=== PATIENT | male | born 1940 | race Caucasian/White ===

== ENCOUNTER 2017-04-22 11:59 | Emergency (ER) | payer OTHER, MEDICARE ==
[~2017-04-22] VITALS: Ht 182.9 cm; Wt 110.2 kg
[~2017-04-22 11:59] MED LIST: PERCOCET 325 MG1 TA2 PO; ZOFRAN4 MG PO
[2017-04-22 12:59] LABS: ABSOLUTE BASOPHIL COUNT 0 /CUMM (0.0-0.2); ABSOLUTE EOSINOPHIL COUNT 0.1 /CUMM (0.0-0.7); ABSOLUTE GRANULOCYTE CT 3.4 /CUMM (1.4-6.5); ABSOLUTE LYMPH COUNT 1.8 /CUMM (1.2-3.4); ABSOLUTE MONOCYTE COUNT 0.3 /CUMM (0.10-0.60); BASOPHIL % 0.5 % (0.0-2.0); EOSINOPHIL % 1.1 % (0-5); GRANULOCYTE % 60.2 % (42.2-75.2); HEMATOCRIT 45.7 % (42-52); MEAN CORPUSCULAR HGB 29.8 PG (27.0-31.0); MEAN CORPUSCULAR HGB CONC 32.8 G/DL (33.0-37.0); MEAN CORPUSCULAR VOLUME 90.8 FL (80.0-94.0); PLATELET COUNT 154 /CUMM (130-400); RBC DISTRIBUTION WIDTH 14.9 % (11.5-14.5); RED BLOOD CELL CT 5.03 /CUMM (4.70-6.10); WHITE BLOOD CELL COUNT 5.7 /CUMM (4.8-10.8)
[2017-04-22] MEDS ORDERED: ALLOPURINOL100 M1 PO (13:15)
[2017-04-22] MEDS ORDERED: HYDRALAZINE HCL25 M1 PO (13:15)
[2017-04-22] MEDS ORDERED: LOSARTAN POTAS100 M1 PO (13:15)
[2017-04-22] MEDS ORDERED: PANTOPRAZOLE SO40 M1 PO (13:16)
[2017-04-22] MEDS ORDERED: FUROSEMIDE20 M1 PO (13:16)
[2017-04-22] MEDS ORDERED: METFORMIN HCL500 M3 PO (13:16)
[2017-04-22] MEDS ORDERED: WARFARIN SODIUM5 M1 PO (13:17)
[2017-04-22] MEDS ORDERED: VESICARE10 MG PO (13:17)
[2017-04-22] MEDS ORDERED: MELATONIN3 M4 PO (13:18)
[2017-04-22] MEDS ORDERED: TRAVATAN Z5 ML OS (13:18)
[2017-04-22] MEDS ORDERED: VITAMIN B-121000 MC3 PO (13:19)
[2017-04-22] MEDS ORDERED: VITAMIN D31000 UNI1 PO (13:19)
--- NOTE | 2017-04-22 15:01 | ED GENERAL ADULT ---
History of Present Illness General Chief Complaint: Altered Mental Status Stated Complaint: AMS.HAULCINATING Source: patient, family Exam Limitations: no limitations Vital Signs & Intake/Output Vital Signs & Intake/Output Vital Signs Date Time Temp Pulse Resp B/P B/P Pulse O2 O2 Flow FiO2 Mean Ox Delivery Rate 04/22 2008 98.0 75 20 150/92 97 Room Air 04/22 1723 98.5 66 20 152/88 94 Room Air 04/22 1414 98.6 81 20 170/88 97 04/22 1319 Room Air 04/22 1212 98.9 84 15 164/79 100 Room Air ED Intake and Output 04/23 0000 04/22 1200 Intake Total Output Total Balance Patient 243 lb Weight Weight Reported by Patient Measurement Method Allergies Coded Allergies: NO KNOWN ALLERGIES (04/22/17) Reconcile Medications Allopurinol 100 MG TABLET 200 MG PO DAILY GOUT (Reported) Cholecalciferol (Vitamin D3) (Vitamin D3) 1,000 UNIT CAPSULE 1 CAP PO DAILY SUPPLEMENT (Reported) Cyanocobalamin (Vitamin B-12) 1,000 MCG TABLET 1 TAB PO DAILY SUPPLEMENT ( Reported) Furosemide 20 MG TABLET 1 TAB PO DAILY HTN (Reported) Hydralazine HCl 25 MG TABLET 1 TAB PO TID HTN (Reported) Losartan Potassium 100 MG TABLET 1 TAB PO DAILY HTN (Reported) Melatonin 3 MG TABLET 10 MG PO QHS PRN SLEEP (Reported) Metformin HCl 500 MG TABLET 1 TAB PO DAILY DIABETES (Reported) Pantoprazole Sodium 40 MG TABLET.DR 1 TAB PO DAILY GERD (Reported) Solifenacin Succinate (Vesicare) 10 MG TABLET 1 TAB PO DAILY FREQUENT URINATION (Reported) Travoprost (Travatan Z) 0.004 % DROPS 1 GTT OS QPM LEFT EYE (Reported) Warfarin Sodium 5 MG TABLET 1 TAB PO AD BLOOD THINNER (Reported) Warfarin Sodium 4 MG TABLET 1 TAB PO AD BLOOD THINNER (Reported) Triage Note: PT TO ED FOR HALLUCINATIONS OVER PAST THREE DAYS, REPORTING PT HAS BEEN SEEING PEOPLE WHO ARENT THERE AND "HES COMPLETELY DISORIENTED". PT ALERT AND ORIENTED X 3 IN TRIAGE, SLOW TO ANSWER BUT ANSWERING APPROPRIATELY. URINE TRIO OBTAINED IN TRIAGE. PT HAS NO COMPLAINTS. Triage Nurses Notes Reviewed? yes HPI: 76M PMH HTN, HLD, ATRIAL FIBRILLATION ON COUMADIN BROUGHT IN BY FOR 2-3 EPISODES OF VISUAL HALLUCINATIONS. AT BASELINE PATIENT IS FORGETFUL BUT IS INFREQUENTLY CONFUSED. OVER THE PAST WEEK HAD 2-3 EPISODES WHERE HE REPORTED SEEING SOMEONE WHO WAS NOT THERE. HE IS OTHERWISE NOT CONFUSED, ALERT AND ORIENTED X3. HIS REPORTS THAT OTHER THAN THE EPISODES HE IS AT HIS BASELINE. DENIES FEVER, CHILLS, HEADACHE, VISION CHANGES, CHEST PAIN, SOB, ABDOMINAL PAIN, DIARRHEA, DYSURIA. HE IS CONTIPATED, BUT THIS IS CHRONIC, THOUGH NO BM FOR 3 DAYS. (DIDI VANEGAS MD) Past History Travel History Traveled to [place] past 21 day No Medical History Any Pertinent Medical History? 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 No (DIDI VANEGAS MD) Review of Systems Review of Systems Constitutional: Reports: no symptoms. EENTM: Reports: no symptoms. Respiratory: Reports: no symptoms. Cardiovascular: Reports: no symptoms. GI: Reports: no symptoms. Genitourinary: Reports: no symptoms. Musculoskeletal: Reports: no symptoms. Skin: Reports: no symptoms. Neurological/Psychological: Reports: see HPI. Hematologic/Endocrine: Reports: no symptoms. Immunologic/Allergic: Reports: no symptoms. All Other Systems: Reviewed and Negative (DIDI VANEGAS MD) Physical Exam Physical Exam General Appearance: well developed/nourished, no apparent distress, alert, awake , comfortable Head: atraumatic, normal appearance Ears, Nose, Throat: normal ENT inspection Neck: normal inspection, supple, full range of motion Respiratory: normal breath sounds, no respiratory distress Cardiovascular: regular rate/rhythm Gastrointestinal: soft, non-tender Back: normal range of motion Extremities: normal inspection, normal range of motion, no edema Neurologic/Psych: no motor/sensory deficits, awake, alert, oriented x 3, normal mood/affect, prorate clerk II-XII nml as tested, SHUFFLING GAIT BUT STEADY Core Measures ACS in differential dx? No CVA/TIA Diagnosis: No Severe Sepsis Present: No Septic Shock Present: No (GUILHERME BERGMAN,DIDI) Progress Differential Diagnoses I considered the following diagnoses in my evaluation of the patient: DEMENTIA, DELIRIUM, CVA, PSYCHOSIS, ENCEPHALOPATHY, TIA Plan of Care: Orders Procedure Date/time Status Regular Diet 04/23 B Active Add-on Test (ER Only) 04/22 1619 Active URINE DRUG SCREEN FOR ER ONLY 04/22 1618 Complete Add-on Test (ER Only) 04/22 1521 Active ED CRISIS PSYCH CONSULT 04/22 1423 Active ETHANOL 04/22 1245 Complete COMPREHENSIVE METABOLIC PANEL 04/22 1237 Complete CBC WITHOUT DIFFERENTIAL 04/22 1237 Complete EKG 04/22 1231 Active URINALYSIS 04/22 1202 Complete Laboratory Tests 04/22/17 1501: Serum Alcohol Cancelled 04/22/17 1245: Anion Gap 12, Estimated GFR > 60, BUN/Creatinine Ratio 25.6 H, Glucose 100 H, Calcium 9.0, Total Bilirubin 1.1, AST 17, ALT 34, Alkaline Phosphatase 62, Total Protein 7.5, Albumin 4.7, Globulin 2.8, Albumin/Globulin Ratio 1.7, CBC w Diff NO MAN DIFF REQ, RBC 5.03, MCV 90.8, MCH 29.8, RDW 14.9 H, MPV 10.0, Gran % 60.2, Lymphocytes % 32.2, Monocytes % 6.0, Eosinophils % 1.1, Basophils % 0.5, Absolute Granulocytes 3.4, Absolute Lymphocytes 1.8, Absolute Monocytes 0.3, Absolute Eosinophils 0.1, Absolute Basophils 0, PUBS MCHC 32.8 L, Serum Alcohol < 10.0 04/22/17 1207: Urine Opiates Screen < 100.00, Methadone Screen < 40, Barbiturate Screen < 60, Ur Phencyclidine Scrn < 6.00, Amphetamines Screen < 100, U Benzodiazepines Scrn < 85, Urine Cocaine Screen < 50, Urine Cannabis Screen < 5.00, Urine Color YEL, Urine Clarity CLEAR, Urine pH 6.0, Ur Specific [place] 1.010, Urine Protein TRACE H, Urine Ketones NEG, Urine Nitrite NEG, Urine Bilirubin NEG, Urine Urobilinogen 0.2, Ur Leukocyte Esterase NEG, Ur Microscopic SEDIMENT EXAMINED, Urine RBC RARE, Urine Bacteria RARE H, Urine Hemoglobin NEG, Urine Glucose NEG WILL OBTAIN URINARLYSIS, URINE TOXICOLOGY, CBC, CMP, CRISIS EVALUATION. SUSPECT DEMENTIA WITH POSSIBLE DELIRIUM/SUNDOWNING. VESICARE STARTED RECENTLY, MAY BE ADVERSE EFFECT. URINALYSIS NORMAL, CMP AND CBC NORMAL. SENT TO [facility] FOR CT HEAD WITHOUT CONTRAST WHICH SHOWED ONLY CHRONIC CHANGES. SPOKE WITH ER CRISIS AND GERIPSYCHIATRIST DR SMITH WHO INITIALLY RECOMMENDED CT HEAD, AND NOW RECOMMENDS FOLLOW UP WITH NEUROLOGY AN OUTPATIENT FOR EVALUATION OF POSSIBLE LEWY BODY DEMENTIA. PATIENT WILL BE DISCHARGED HOME IN THE CARE OF HIS WITH OUTPATIENT PCP AND NEUROLOGY FOLLOW UP, WITH EVENTUAL REFERRAL TO GERIATRIC PSYCHIATRY. NO NEW MEDICATIONS ARE INDICATED AT THIS TIME. (DIDI VANEGAS MD) Diagnostic Imaging: Viewed by Me: CT Scan. Discussed w/RAD: CT Scan. Radiology Impression: PER [facility] RADIOLOGY REPORT: CT HEAD WITHOUT CONTRAST NO ACUTE INTRACRANIAL ABNORMALITY WITH BILATERAL AGE-RELATED VOLUME LOSS. Initial ED EKG: AFIB, no ST T wave changes Prior EKG: unchanged (DIDI VANEGAS MD) Departure Departure Time of Disposition: 2018 Disposition: HOME OR SELF CARE Condition: Stable Clinical Impression Primary Impression: Visual hallucination Secondary Impressions: Dementia Referrals: VICTOR HUGO BERGMAN,MERCEDES Marroquin (PCP/Family) LUIS BERGMAN,ZHANNA YANES MD,CHARU Christianson. Additional Instructions: FOLLOW UP WITH PCP AND NEUROLOGY OUTPATIENT. Departure Forms: Customer Survey General Discharge Information (DIDI VANEGAS MD) Resident Co-Sign Statement Statement: ED Attending supervision documentation- [X] I saw and evaluated the patient. I have also reviewed all the pertinent lab results and diagnostic results. I agree with the findings and the plan of care as documented in the Resident's documentation. [X] I have reviewed the ED Record and agree with the Resident's documentation. [] Additions or exceptions (if any) to the Resident's note and plan are summarized below: [] (ANDERSON BERGMAN,PORTIA) Critical Care Note Critical Care Note Critical Care Time: non-applicable (DIDI VANEGAS MD)
--- NOTE | 2017-04-22 17:46 | ED PSYCH CRISIS CONSULTATION ---
Crisis Consult Basic Assessment Date of Consult: 04/22/17 Responsible Person/Accompanied By: Self/Rosy Morton () Insurance Authorization: Insurance #1: Insurance name: [employer] [place]. Phone number: Policy number: [id number] Group number: [id number] Authorization number: ED Provider: Patient's ED Provider: DIDI VANEGAS MD Primary Care Physician: Patient's PCP: MERCEDES GAY MD PCP's Current Psychiatrist: Gerard Esteban MD Chief Complaint: Altered Mental Status Patient's Quote: "I'm ok" Present Illness: Pt is a 76 year old male. Pt was referred to the ED by his Rosy Morton. reports the pt presented symptoms of confusion, disorganized thoughts, "seeing people who are not there". Prior to today, one week ago, he locked himself out of the house and told his "the house is full of people and they won't let me in" as he is ringing the door lo. During the interview the pt was alert, engaging and cooperative. Pt did not know the date, he Just said "17". However, he did know the current president Ayesha, the last two presidents [place] [employer] & [place] and then all the past presidents back to [place], George, [facility] and Sam. His mood was jovial, good attitude with a sense of humor and very calm. Pt keep getting up to stretch his legs, due to aching knees. Pt was fed a meal and he appropriately used the utensils knife and fork and cut and ate his chicken dinner. reports pt has a good appetite , but has difficulty sleeping because of a sleep disorder. Pt denies hearing voices now, pt denies SI/HI. Pt reports feeling a little depressed about being retired and not being able to work. His , states that she continuously ask him not to paint or do jobs around the house anymore. However, she reports he cooks for himself. He takes his own afternoon medications. Pt's labels his medications and leavess the meds for him when she goes to work. Mrs. Morton reports her was seen by his PCP Dr. Mercedes Gay on 04/01/17 and had a blood work done and he was "fine". Pt has AFib, Diabetes, Hypertension , Over Active Bladder and Sleep Apnea and takes the following medications. Metformin 500mgs, Losartan 100mgs, Hydralazine 25 mgs, Furosemide 20mgs, Pantoprozide 50mgs, Allopurinol 200mgs, Warfarin Sodium, melatonin 10 mgs, Lip- Flavoinid plus, Align-Probiotic 6mgs. Pt's Utox was negative. Pt denies a history of substances use. Mrs. Morton states the pt does not have a history of mental illness. No prior inpatient hospitalization for psychiatric reasons. The only known family history is an older sister age 86 who has Alzheimer's Disease. Patient's Address: [address] [place] [address] Other Who Do You Live With? Other (see notes) (Spouse) Family/Informants Interviewed: Face to face interview with Rosy Morton . Mrs. Morton reports seeing a change in behavior that started a week ago. She also said the pt had a change in his medications (1 medication Vesicare) after he saw his PCP on 04/01/17. She reports he is generally forgetful about somethings. However, he is able to prepare meals for himself and take his noon medications when she goes off to work daily. Pt did say to her a couple of days a go "who is that man over there". Mrs. Morton is concern that the pt seems more confused and disoriented in the last two days. Allergies - Coded Allergies: NO KNOWN ALLERGIES (04/22/17) Current Medications - Scheduled Medications Allopurinol 100 MG TABLET 200 MG PO DAILY GOUT #60 (Reported) Entered as Reported by PIEDAD CROWDER on 04/22/17 1315 Cholecalciferol (Vitamin D3) (Vitamin D3) 1,000 UNIT CAPSULE 1 CAP PO DAILY SUPPLEMENT (Reported) Entered as Reported by PIEDAD CROWDER on 04/22/17 1319 Cyanocobalamin (Vitamin B-12) 1,000 MCG TABLET 1 TAB PO DAILY SUPPLEMENT ( Reported) Entered as Reported by PIEDAD CROWDER on 04/22/17 1319 Furosemide 20 MG TABLET 1 TAB PO DAILY HTN #30 (Reported) Entered as Reported by PIEDAD CROWDER on 04/22/17 1316 Hydralazine HCl 25 MG TABLET 1 TAB PO TID HTN #270 (Reported) Entered as Reported by PIEDAD CROWDER on 04/22/17 131 Losartan Potassium 100 MG TABLET 1 TAB PO DAILY HTN #30 (Reported) Entered as Reported by PIEDAD CROWDER on 04/22/17 1315 Metformin HCl 500 MG TABLET 1 TAB PO DAILY DIABETES #30 (Reported) Entered as Reported by PIEDAD CROWDER on 04/22/17 1316 Pantoprazole Sodium 40 MG TABLET.DR 1 TAB PO DAILY GERD #30 (Reported) Entered as Reported by PIEDAD CROWDER on 04/22/17 1316 Solifenacin Succinate (Vesicare) 10 MG TABLET 1 TAB PO DAILY FREQUENT URINATION #30 (Reported) Entered as Reported by PIEDAD CROWDER on 04/22/17 131 Travoprost (Travatan Z) 0.004 % DROPS 1 GTT OS QPM LEFT EYE #5 (Reported) Entered as Reported by PIEDAD CROWDER on 04/22/17 1318 Warfarin Sodium 5 MG TABLET 1 TAB PO AD BLOOD THINNER #30 (Reported) Entered as Reported by PIEDAD CROWDER on 04/22/17 131 Warfarin Sodium 4 MG TABLET 1 TAB PO AD BLOOD THINNER (Reported) Entered as Reported by NAT MIXON on 04/22/17 1940 Scheduled PRN Medications Melatonin 3 MG TABLET 10 MG PO QHS PRN SLEEP (Reported) Entered as Reported by PIEDAD CROWDER on 04/22/17 1318 Laboratory Results: Laboratory Tests 04/22/17 1501: Serum Alcohol Cancelled 04/22/17 1245: Anion Gap 12, Estimated GFR > 60, BUN/Creatinine Ratio 25.6 H, Glucose 100 H, Calcium 9.0, Total Bilirubin 1.1, AST 17, ALT 34, Alkaline Phosphatase 62, Total Protein 7.5, Albumin 4.7, Globulin 2.8, Albumin/Globulin Ratio 1.7, CBC w Diff NO MAN DIFF REQ, RBC 5.03, MCV 90.8, MCH 29.8, RDW 14.9 H, MPV 10.0, Gran % 60.2, Lymphocytes % 32.2, Monocytes % 6.0, Eosinophils % 1.1, Basophils % 0.5, Absolute Granulocytes 3.4, Absolute Lymphocytes 1.8, Absolute Monocytes 0.3, Absolute Eosinophils 0.1, Absolute Basophils 0, PUBS MCHC 32.8 L, Serum Alcohol < 10.0 04/22/17 1207: Urine Opiates Screen < 100.00, Methadone Screen < 40, Barbiturate Screen < 60, Ur Phencyclidine Scrn < 6.00, Amphetamines Screen < 100, U Benzodiazepines Scrn < 85, Urine Cocaine Screen < 50, Urine Cannabis Screen < 5.00, Urine Color YEL, Urine Clarity CLEAR, Urine pH 6.0, Ur Specific [place] 1.010, Urine Protein TRACE H, Urine Ketones NEG, Urine Nitrite NEG, Urine Bilirubin NEG, Urine Urobilinogen 0.2, Ur Leukocyte Esterase NEG, Ur Microscopic SEDIMENT EXAMINED, Urine RBC RARE, Urine Bacteria RARE H, Urine Hemoglobin NEG, Urine Glucose NEG (ISRAEL BREWER LCSW) Past History Past Medical History Neurological: NONE EENT: NONE Cardiovascular: AFIB, hypertension, hyperlipidemia Respiratory: SLEEP APNEA Gastrointestinal: constipation Hepatic: NONE Renal: NONE Musculoskeletal: NONE Psychiatric: NONE Endocrine: diabetes Blood Disorders: NONE 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 Physical Limitations (Interventions): Knee problems, limits mobility Psychiatric Treatment History Psych Treatment Psychiatric Treatment No Inpatient Treatment No Outpatient Treatment No Location of Treatment n/a Reason for Treatment n/a Dates of Treatment n/a Response to Treatment n/a Diagnosis by History: Afib, hypertension, sleep apnea, over active bladder, Diabetes. Substance Use/Abuse History Drug Use/Abuse Substances Used/Abused No First Use n/a Last Used n/a How much used/taken n/a How often n/a For how long n/a Route of use n/a Substance Abuse Treatment Substance Abuse Treatment Past Substance Abuse [place] No Inpatient Treatment No Outpatient Treatment No Location of Treatment n/a Reason for Treatment n/a Dates of Treatment n/a Response to Treatment n/a (ISRAEL BREWER LCSW) Current Mental Status Mental Status Orientation: Current situation Affect: WNL Speech: WNL Neuro-vegetative: Energy Decreased, Sleep Disturbance Appearance Appearance- Dress/Hygiene: Clean, age appropriate attire. Behaviors Thought Process: Disorganized Thought Content: Somatic Memory: Impaired Insight: Poor SI/HI Risk Assessment Past Suicidal Ideation/Attempts No Current Suicidal Ideation/Att No Past Homicidal Ideation/Att: No Current Homicidal Ideation/Attempts No Degree of Intent: None Danger To: N/A Gravely Disabled: Inability Risk Factors: age (under 24/over 65), chronic/serious med cond., male (Pt left alone long period kate), limited support Lethality Ratin PTSD Checklist PTSD Done? 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 Medical Condition , Afib, Diabetes, Over Active Bladder, Hypertension, Sleep Apnea, Arthritis Current GAF: 30 (ISRAEL BREWER LCSW) Departure Disposition Psych Medical Clearance Date: 04/22/17 Medically Cleared at: 0400 Time Started: 0450 Time Ended: 0510 Psychiatrist Consulted: Gerard Esteban MD Date Disposition Established: 04/22/17 Time Disposition Established: 537 Plan for Disposition - Modality: Outpatient Facility: Patient to Arrange Follow-up Appt Date: 04/24/17 Follow-Up Appt Time: 1000 Contact: PCP Dr. Gay Telephone: [phone] Rationale for Disposition: Pt presents to the ED with symptoms that are conistent with a neurological process that lead to cognitive disturbances, behavioral dysregulation, visual hallucination and sleep disturbances. Symptoms are consistent with the diagnosis of Mild Neurocognitive Disorder with Lewy Bodies. Additional Instructions: Pt's Mrs. Rosy Morton will contact pt's PCP Dr. Gay on 04/24/17 for a referral to a Neurologist. Pt's was instructed to not leave the pt alone for safety reasons. Mrs. Morton's plan is to bring pt to his daughter daily, she lives in [place]. Mrs. Morton was encourage to make a referral to an Adult Day Care as well a a VNA for medication administration. Referrals VICTOR HUGO BERGMAN,MERCEDES Marroquin (PCP/Family) (ISRAEL BREWER LCSW) Addendum Note Addendum Discussed case with ER MD as pt did not have head imaging. Requested head imaging as effective new onset psychosis in older adult with afib, high risk for stroke or vascular insult. Pt sent to [facility] for head CT. Per telephone report via ER MD, diffuse atrophy. No acute IC process. 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 Pt and did not feel danger to self or others or gravely disabled. Did not want admitted. MH provider recommneded VNA for meds, ADC as works, and closer f/u with PCP with needed f/f/u with Neurologist or Geriatric Psychiatrist to complete w/u - NELIA scan, more detailed neuro exam, neuropsych testing. amenable to arranging this as outpt. She acknowledged understanding that could bring back to ER or call 911 if worsening psychosis or if danger to self or others. (LUIS BERGMAN,GERARD Sim)
[2017-04-22] MEDS ORDERED: WARFARIN SODIUM4 M1 PO (19:40)
[2017-04-22 20:08] VITALS: BP 150/92
== END 2017-04-22 20:28 ==
LOC: ERH 11:59
PROVIDERS: Internal Medicine
DX: R44.1 Visual hallucinations (principal); F03.90 Unspecified dementia, unspecified severity, without behavioral disturbance, psychotic disturbance, mood disturbance, and anxiety; Z79.01 Long term (current) use of anticoagulants
CPT/HCPCS: 80307; 81001; 93005; 93010; G0463; G0480

== ENCOUNTER 2018-07-24 23:19 | Emergency (ER) | payer OTHER, MEDICARE ==
[~2018-07-24 23:19] MED LIST changes: +ALLOPURINOL100 M1 PO; +FUROSEMIDE20 M1 PO; +HYDRALAZINE HCL25 M1 PO; +LOSARTAN POTAS100 M1 PO; +MELATONIN10 M2 PO; +METFORMIN HCL500 M3 PO; +PANTOPRAZOLE SO40 M1 PO; +TRAVATAN Z5 ML OS; +VESICARE10 MG PO; +VITAMIN B-121000 MC3 PO; +VITAMIN D31000 UNI1 PO; +WARFARIN SODIUM4 M1 PO; +WARFARIN SODIUM5 M1 PO
--- NOTE | 2018-07-24 23:22 | ED AMS/SEIZURE/WEAK/DIZZY ---
History of Present Illness General Chief Complaint: General Adult Stated Complaint: BIBA CONFUSION Source: patient, EMS Exam Limitations: clinical condition Vital Signs & Intake/Output Vital Signs & Intake/Output Vital Signs Date Time Temp Pulse Resp B/P B/P Pulse O2 O2 Flow FiO2 Mean Ox Delivery Rate 07/25 1449 97.7 76 22 125/72 98 Room Air 07/25 1226 70 141/104 / 1224 97.6 70 18 141/104 97 / 1023 98.3 72 18 168/85 97 07/25 1020 98.3 72 18 168/85 07/25 0644 97 Room Air 07/25 0643 98.0 67 18 170/90 98 Room Air 07/24 2330 97.8 78 18 149/75 98 Room Air Allergies Coded Allergies: NO KNOWN ALLERGIES (04/22/17) Triage Nurses Notes Reviewed? yes Onset: Gradual Duration: day(s):, getting worse Timing: recent history Injury Environment: home Severity: moderate Modifying Factors: Improves With: rest. Associated Symptoms: confusion HPI: 77 yo gentleman h/o diabetes and afib, presents with increased confusion x 1 day. Per the medics, he did not recognize his . He wandered outside of his home. He recently took a sleeping medicine. Of note, he "feels warm," and has burning with urination. He presents mumbling incoherently. (Shiva BERGMAN,Stevo Mcneil) Reconcile Medications Allopurinol 100 MG TABLET 1 TAB PO DAILY GOUT (Reported) Amlodipine Besylate 5 MG TABLET 1 TAB PO DAILY HEART (Reported) Carboxymethylcellulos/Glycerin (Refresh Optive Eye Drops) 0.5 %-0.9 % DROPS 1 GTT OPH BID EYE (Reported) Cholecalciferol (Vitamin D3) (Vitamin D3) 1,000 UNIT CAPSULE 1 CAP PO DAILY SUPPLEMENT (Reported) Cyanocobalamin (Vitamin B-12) 1,000 MCG TABLET 1 TAB PO DAILY SUPPLEMENT ( Reported) Furosemide 20 MG TABLET 1 TAB PO DAILY HTN (Reported) Losartan Potassium 100 MG TABLET 1 TAB PO DAILY HTN (Reported) Melatonin 10 MG TABLET 1 TAB PO QPM SLEEP (Reported) Metformin HCl 500 MG TABLET 1 TAB PO DAILY DIABETES (Reported) Pantoprazole Sodium 40 MG TABLET.DR 1 TAB PO DAILY GERD (Reported) Solifenacin Succinate (Vesicare) 10 MG TABLET 1 TAB PO DAILY FREQUENT URINATION (Reported) Travoprost (Travatan Z) 0.004 % DROPS 1 GTT OS QPM LEFT EYE (Reported) Warfarin Sodium 5 MG TABLET 1 TAB PO SuTuThSa BLOOD THINNER (Reported) Warfarin Sodium 4 MG TABLET 1 TAB PO MoWeFr BLOOD THINNER (Reported) (Miguel Bowens MD) Past History Travel History Traveled to [place] past 21 day No Medical History Any Pertinent Medical History? 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 No (Shiva BERGMAN,tSevo Mcneil) Review of Systems Review of Systems Constitutional: Reports: no symptoms. EENTM: Reports: no symptoms. Respiratory: Reports: no symptoms. Cardiovascular: Reports: no symptoms. GI: Reports: no symptoms. Genitourinary: Reports: no symptoms. Musculoskeletal: Reports: no symptoms. Skin: Reports: no symptoms. Neurological/Psychological: Reports: no symptoms. Hematologic/Endocrine: Reports: no symptoms. Immunologic/Allergic: Reports: no symptoms. All Other Systems: Reviewed and Negative (Shiva BERGMAN,Stevo Mcneil) Physical Exam Physical Exam General Appearance: well developed/nourished, mild distress Head: atraumatic, normal appearance Eyes: Bilateral: normal appearance, PERRL, EOMI. Ears, Nose, Throat: dry mucosa Neck: normal inspection, supple, full range of motion Respiratory: normal breath sounds, chest non-tender, no respiratory distress, quiet respiration, lungs clear Cardiovascular: regular rate/rhythm Gastrointestinal: normal bowel sounds, soft Back: normal inspection Extremities: normal range of motion Neurologic/Psych: awake Core Measures ACS in differential dx? No CVA/TIA Diagnosis No Sepsis Present: No Sepsis Focused Exam Completed? No (Shiva BERGMAN,Stevo Mcneil) Progress Differential Diagnosis: dementia, sundowning, dehydration, uti vs other. Plan of Care: Orders Procedure Date/time Status Heart Healthy Diet 07/25 B Active PROTHROMBIN TIME 07/25 458 Complete Add-on Test (ER Only) 09/05 0450 Active PT Evaluate & Treat 07/25 308 Active ED CRISIS PSYCH CONSULT 07/25 308 Active CASE MANAGEMENT CONSULT 07/25 308 Active URINALYSIS 07/24 233 Complete TROPONIN LEVEL 07/24 232 Complete LIPASE 07/24 232 Complete LACTIC ACID 07/24 2322 Complete HEPATIC FUNCTION PANEL 07/24 2322 Complete CBC WITHOUT DIFFERENTIAL 07/24 2322 Complete BASIC METABOLIC PANEL 07/24 2322 Complete AMYLASE 07/24 2322 Complete EKG 07/24 2322 Active Current Medications Sig/Mady Start time Last Medication Dose Stop Time Status Admin Hydralazine HCl 75 MG BID 07/25 1230 UNVr 07/25 (Apresoline) 1226 Amlodipine Besylate 5 MG DAILY 07/25 1050 UNVr 07/25 (Norvasc) 1226 Allopurinol 200 MG DAILY 07/25 09 UNVr 07/25 (Zyloprim) 1020 Cholecalciferol 1,000 IU DAILY 07/25 900 UNVr 07/25 (Vitamin D) 1020 Cyanocobalamin 1,000 MCG DAILY 07/25 900 UNVr 07/25 (Vitamin B12) 1020 Furosemide 20 MG DAILY 07/25 09 UNVr 07/25 (Lasix) 1020 Hydralazine HCl 25 MG TID 07/25 09 CAN (Apresoline) Losartan Potassium 100 MG DAILY 07/25 900 UNVr 07/25 (Cozaar) 1020 Metformin HCl 500 MG DAILY 07/25 09 UNVr 07/25 (Glucophage) 1020 Omeprazole 20 MG DAILY AC 07/25 07 UNVr 07/25 (Prilosec) 1020 Sodium Chloride 0 ONCE ONE 07/24 233 CAN (Normal Saline 0.9%) 07/24 233 Laboratory Tests 07/25/18 0508: PT 28.0 H, INR 2.54 H 07/25/18 0222: Lactic Acid Cancelled 07/24/18 2346: Urinalysis LIGHT H, Urine Color YEL, Urine Clarity CLEAR, Urine pH 6.0, Ur Specific [place] 1.020, Urine Protein 30 H, Urine Ketones NEG, Urine Nitrite NEG, Urine Bilirubin NEG, Urine Urobilinogen 1.0, Ur Leukocyte Esterase NEG, Ur Microscopic SEDIMENT EXAMINED, Ur Epithelial Cells RARE, Hyaline Casts RARE H, Urine Hemoglobin NEG, Urine Glucose NEG 07/24/188: Anion Gap 9, Estimated GFR > 60, BUN/Creatinine Ratio 27.8 H, Glucose 126 H, Lactic Acid 0.9, Calcium 9.1, Total Bilirubin 0.6, Direct Bilirubin 0.3, AST 20, ALT 29, Alkaline Phosphatase 59, Troponin I < 0.01, Total Protein 6.9, Albumin 3.9, Amylase 70, Lipase 399 H, CBC w Diff NO MAN DIFF REQ, RBC 4.34 L, MCV 87.7, MCH 29.8, MCHC 34.0, RDW 14.6 H, MPV 9.7, Gran % 71.4, Lymphocytes % 21.3 , Monocytes % 5.5, Eosinophils % 1.3, Basophils % 0.5, Absolute Granulocytes 4.6 , Absolute Lymphocytes 1.4, Absolute Monocytes 0.4, Absolute Eosinophils 0.1, Absolute Basophils 0 Diagnostic Imaging: Viewed by Me: CT Scan. Discussed w/RAD: CT Scan. Radiology Impression: PATIENT: SILVINOANTE PRESENT AGE: 77 PATIENT ACCOUNT NO: [id number] : 38 LOCATION: [facility] ORDERING PHYSICIAN: Stevo Shannon MD SERVICE DATE: 07/24/18 EXAM TYPE: CAT - CT HEAD WO IV CONTRAST EXAMINATION: CT HEAD WITHOUT CONTRAST CLINICAL INFORMATION: Mental status changes. COMPARISON: July 07, 2015. TECHNIQUE: Contiguous axial images of the brain were obtained without IV contrast. DLP: 697 mGy-cm. FINDINGS: There are no pathologic extra-axial fluid collections. The lateral, third, fourth ventricles are nondilated and concordant with the appearance of the sulci. There is no evidence for acute intraparenchymal hemorrhage or infarct. There is neither mass nor mass effect. There is no shift of midline structures. The paranasal sinuses and mastoid air cells are clear. There are no osseous lesions. IMPRESSION: No evidence for acute intracranial injury. DICTATED BY: Ricki Walters MD DATE/TIME DICTATED:07/25/1818 TELETYPE CLERK:ARGENIS DATE/TIME TRANSCRIBED:07/25/1818 CONFIDENTIAL, DO NOT COPY WITHOUT APPROPRIATE AUTHORIZATION. <Electronically signed in Other Vendor System> SIGNED BY: Ricki Walters MD 07/25/18 0025 CXR Impression: PATIENT: GLAVAN,ANTE PRESENT AGE: 77 PATIENT ACCOUNT NO: [id number] : 38 LOCATION: [facility] ORDERING PHYSICIAN: Stevo Shannon MD SERVICE DATE: 07/24/18 EXAM TYPE: RAD - XRY- PORTABLE CHEST XRAY EXAMINATION: CHEST 1 VIEW CLINICAL INFORMATION: Fever. COMPARISON: October 21, 2017. TECHNIQUE: An AP view of the chest is provided. FINDINGS: The cardiac silhouette is stable. There is streaky opacification throughout the right lung with volume loss. There is obscuration of the right hemidiaphragm and likely a [id number] pleural effusion. The left lung is clear. The osseous structures are unremarkable. IMPRESSION: Mixed parenchymal and pleural disease with volume loss to the right lung. Pneumonia cannot be excluded. Recommendation is for a followup chest series to be obtained following treatment and/or resolution of symptoms to assure resolution of this appearance. DICTATED BY: Ricki Walters MD DATE/TIME DICTATED:07/25/1817 TELETYPE CLERK:ARGENIS DATE/TIME TRANSCRIBED:07/25/1817 CONFIDENTIAL, DO NOT COPY WITHOUT APPROPRIATE AUTHORIZATION. <Electronically signed in Other Vendor System> SIGNED BY: Ricki Walters MD 07/25/18 0023 Initial ED EKG: afib, no change from prior (Shiva BERGMAN,Stevo Mcneil) Departure Departure Disposition: HOME OR SELF CARE Condition: Stable Clinical Impression Primary Impression: Confusion Referrals: Russ Sanches MD (PCP/Family) Departure Forms: Customer Survey General Discharge Information Comments pt to be signed out to dr. bowesn 07/25/18, 7am, pending crises, case management and PT. (Shiva BERGMAN,Stevo Mcneil) Departure Comments Stop the trazodone. Follow-up with Dr. calderón on July 30. (Miguel Bowens MD)
[2018-07-24 23:39] LABS: ABSOLUTE BASOPHIL COUNT 0 /CUMM (0.0-0.2); ABSOLUTE EOSINOPHIL COUNT 0.1 /CUMM (0.0-0.7); ABSOLUTE GRANULOCYTE CT 4.6 /CUMM (1.4-6.5); ABSOLUTE LYMPH COUNT 1.4 /CUMM (1.2-3.4); ABSOLUTE MONOCYTE COUNT 0.4 /CUMM (0.10-0.60); BASOPHIL % 0.5 % (0.0-2.0); EOSINOPHIL % 1.3 % (0-5); GRANULOCYTE % 71.4 % (42.2-75.2); HEMATOCRIT 38.1 % (42-52); MEAN CORPUSCULAR HGB 29.8 PG (27.0-31.0); MEAN CORPUSCULAR VOLUME 87.7 FL (80.0-94.0); MEAN PLATELET VOLUME 9.7 FL (7.4-10.4); PLATELET COUNT 194 /CUMM (130-400); RBC DISTRIBUTION WIDTH 14.6 % (11.5-14.5); RED BLOOD CELL CT 4.34 /CUMM (4.70-6.10); WHITE BLOOD CELL COUNT 6.5 /CUMM (4.8-10.8)
--- NOTE | 2018-07-25 00:23 | RADIOLOGY REPORT ---
EXAMINATION: CHEST 1 VIEW CLINICAL INFORMATION: Fever. COMPARISON: October 21, 2017. TECHNIQUE: An AP view of the chest is provided. FINDINGS: The cardiac silhouette is stable. There is streaky opacification throughout the right lung with volume loss. There is obscuration of the right hemidiaphragm and likely a [id number]-[id number]-pyajzjfc pleural effusion. The left lung is clear. The osseous structures are unremarkable. IMPRESSION: Mixed parenchymal and pleural disease with volume loss to the right lung. Pneumonia cannot be excluded. Recommendation is for a followup chest series to be obtained following treatment and/or resolution of symptoms to assure resolution of this appearance.
--- NOTE | 2018-07-25 00:25 | CT SCAN REPORT ---
EXAMINATION: CT HEAD WITHOUT CONTRAST CLINICAL INFORMATION: Mental status changes. COMPARISON: July 07, 2015. TECHNIQUE: Contiguous axial images of the brain were obtained without IV contrast. DLP: 697 mGy-cm. FINDINGS: There are no pathologic extra-axial fluid collections. The lateral, third, fourth ventricles are nondilated and concordant with the appearance of the sulci. There is no evidence for acute intraparenchymal hemorrhage or infarct. There is neither mass nor mass effect. There is no shift of midline structures. The paranasal sinuses and mastoid air cells are clear. There are no osseous lesions. IMPRESSION: No evidence for acute intracranial injury.
[2018-07-25] MEDS ORDERED: COZAAR100 M1 PO (10:34)
[2018-07-25] MEDS ORDERED: AMLODIPINE BESYL5 M1 PO (10:34)
[2018-07-25] MEDS ORDERED: REFRESH OPTIVE15 M1 OPH (10:37)
[2018-07-25 14:49] VITALS: BP 125/72
--- NOTE | 2018-07-25 17:59 | ED PSYCH CRISIS CONSULTATION ---
See Addendum Crisis Consult Basic Assessment Date of Consult: 07/25/18 Responsible Person/Accompanied By: Brought in by ambulance Insurance Authorization: Insurance #1: Insurance name: [employer] Phone number: Policy number: [id number] Group number: [id number] Authorization number: ED Provider: Patient's ED Provider: Shiva BERGMAN,Stevo Mcneil Primary Care Physician: Patient's PCP: Verónica BERGMAN,Russ Sim PCP's Current Psychiatrist: None Chief Complaint: General Adult Patient's Quote: " I thought they tried to put me to sleep." Present Illness: The patient presented to the ED, last evening after having some periods of confusion and standing outside in his underwear. The patients called 911 to help her with him last evening.The patient reports that he thought "they tried to put me to sleep." He states that he was fearful of his , for some reason. He refers to her, as his hector and states that he does not feel that way now. He is alert to person and place, however believes that it is 2014. He denies any thoughts to hurt himself or anyone else. He would like to go home with his . SW spoke to his , Rosy Morton ([phone], ), who was present with the patient. She states that last night after he took his Trazodone, that he started to act unusual. She states that he was not interested in watching the news, as he generally does. She states that he then became somewhat agitated and walked outside in his underwear. She states that he would not come back in the house, until EMS arrived. She states that he was prescribed a 7 day script from his PCP, Dr. Sanches and he had taken it since 07/18/2018. She reports that he has always been sensitive to medications, mentioning multiple times, where he had adverse reactions. She states that his mental status is back to baseline today.She states that they have been 51 years and she has never known him to have any mental health issues or treatment. She states that he started with some forgetfulness about 1 year ago and some other symptoms. She states that he has been going through medical tests and has been diagnosed with Lymphoma. She states that given all of the factors, that they decided with the treatment team, that they will not be treating it. She does not find him to be a risk to himself or others and would like to take him home. She states that he already has an appointment set up with Dr. Sanches for MondayJuly 30 and he will return to adult daycare tomorrow. She states that she will not be giving him the Trazodone and will discuss further with Dr. Sanches. This greeting card writer discussed connecting the patient with the Geriatric team at [facility], however she states that she does not want any new providers at this time and will discuss further with Dr. Sanches. Patient's Address: [address] [place] [address] Other Who Do You Live With? Spouse Family/Informants Interviewed: Rosy Vaughan- [phone] Allergies - Coded Allergies: NO KNOWN ALLERGIES (04/22/17) Current Medications - Scheduled Medications Allopurinol 100 MG TABLET 1 TAB PO DAILY GOUT #60 (Reported) Entered as Reported by Dasha Bolton on 04/22/17 1315 Amlodipine Besylate 5 MG TABLET 1 TAB PO DAILY HEART (Reported) Entered as Reported by Jonel Ge on 07/25/18 1034 Carboxymethylcellulos/Glycerin (Refresh Optive Eye Drops) 0.5 %-0.9 % DROPS 1 GTT OPH BID EYE (Reported) Entered as Reported by Jonel Ge on 07/25/18 1037 Cholecalciferol (Vitamin D3) (Vitamin D3) 1,000 UNIT CAPSULE 1 CAP PO DAILY SUPPLEMENT (Reported) Entered as Reported by Dasha Bolton on 04/22/17 1319 Cyanocobalamin (Vitamin B-12) 1,000 MCG TABLET 1 TAB PO DAILY SUPPLEMENT ( Reported) Entered as Reported by Dasha Bolton on 04/22/17 1319 Furosemide 20 MG TABLET 1 TAB PO DAILY HTN #30 (Reported) Entered as Reported by Dasha Bolton on 04/22/17 1316 Losartan Potassium 100 MG TABLET 1 TAB PO DAILY HTN #30 (Reported) Entered as Reported by Dasha Bolton on 04/22/17 1315 Melatonin 10 MG TABLET 1 TAB PO QPM SLEEP (Reported) Entered as Reported by Dasha Bolton on 04/22/17 1318 Metformin HCl 500 MG TABLET 1 TAB PO DAILY DIABETES #30 (Reported) Entered as Reported by Dasha Bolton on 04/22/17 1316 Pantoprazole Sodium 40 MG TABLET.DR 1 TAB PO DAILY GERD #30 (Reported) Entered as Reported by Dasha Bolton on 04/22/17 1316 Solifenacin Succinate (Vesicare) 10 MG TABLET 1 TAB PO DAILY FREQUENT URINATION #30 (Reported) Entered as Reported by Dasha Bolton on 04/22/17 1317 Travoprost (Travatan Z) 0.004 % DROPS 1 GTT OS QPM LEFT EYE #5 (Reported) Entered as Reported by Dasha Bolton on 04/22/17 1318 Warfarin Sodium 5 MG TABLET 1 TAB PO SuTuThSa BLOOD THINNER #30 (Reported) Entered as Reported by Dasha Bolton on 04/22/17 1317 Warfarin Sodium 4 MG TABLET 1 TAB PO MoWeFr BLOOD THINNER (Reported) Entered as Reported by Elsie Mantilla on 04/22/17 1940 Discontinued Medications Hydralazine HCl 25 MG TABLET 3 TAB PO BID HTN #270 (Reported) Discontinued reason: Changed Dose Laboratory Results: Laboratory Tests 07/25/18 0508: PT 28.0 H, INR 2.54 H 07/25/18 0222: Lactic Acid Cancelled 07/24/18 2346: Urinalysis LIGHT H, Urine Color YEL, Urine Clarity CLEAR, Urine pH 6.0, Ur Specific [place] 1.020, Urine Protein 30 H, Urine Ketones NEG, Urine Nitrite NEG, Urine Bilirubin NEG, Urine Urobilinogen 1.0, Ur Leukocyte Esterase NEG, Ur Microscopic SEDIMENT EXAMINED, Ur Epithelial Cells RARE, Hyaline Casts RARE H, Urine Hemoglobin NEG, Urine Glucose NEG 07/24/18 2328: Anion Gap 9, Estimated GFR > 60, BUN/Creatinine Ratio 27.8 H, Glucose 126 H, Lactic Acid 0.9, Calcium 9.1, Total Bilirubin 0.6, Direct Bilirubin 0.3, AST 20, ALT 29, Alkaline Phosphatase 59, Troponin I < 0.01, Total Protein 6.9, Albumin 3.9, Amylase 70, Lipase 399 H, CBC w Diff NO MAN DIFF REQ, RBC 4.34 L, MCV 87.7, MCH 29.8, MCHC 34.0, RDW 14.6 H, MPV 9.7, Gran % 71.4, Lymphocytes % 21.3 , Monocytes % 5.5, Eosinophils % 1.3, Basophils % 0.5, Absolute Granulocytes 4.6 , Absolute Lymphocytes 1.4, Absolute Monocytes 0.4, Absolute Eosinophils 0.1, Absolute Basophils 0 Past History Past Medical History Neurological: NONE EENT: NONE Cardiovascular: AFIB, hypertension, hyperlipidemia Respiratory: SLEEP APNEA Gastrointestinal: constipation Hepatic: NONE Renal: NONE Musculoskeletal: NONE Psychiatric: NONE Endocrine: diabetes Blood Disorders: NONE Cancer(s): NONE 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 Physical Limitations (Interventions): He has knee problems by history. Per his he was diagnosed with Lymphoma and they have decided, with his treatment team, that they are not going to treat it. Psychiatric Treatment History Psych Treatment Psychiatric Treatment No Inpatient Treatment No Outpatient Treatment No Location of Treatment N/A Reason for Treatment N/A Dates of Treatment N/A Response to Treatment N/A Diagnosis by History: By History: Afib, hypertension, sleep apnea, over active bladder, Diabetes and lymphoma. Substance Use/Abuse History Drug Use/Abuse Substances Used/Abused No First Use N/A Last Used N/A How much used/taken N/A How often N/A For how long N/A Route of use N/A Substance Abuse Treatment Substance Abuse Treatment Past Substance Abuse [place] No Inpatient Treatment No Outpatient Treatment No Location of Treatment N/A Reason for Treatment N/A Dates of Treatment N/A Response to Treatment N/A Comments: N/A Current Mental Status Mental Status Orientation: Current situation, Person, Place Affect: Appropriate Speech: Soft Neuro-vegetative: Sleep Disturbance Appearance Appearance- Dress/Hygiene: The patient was lying in bed, in hospital attire and had good eye contact. Behaviors Thought Process: WNL Thought Content: WNL Memory: Impaired Insight: Fair SI/HI Risk Assessment Past Suicidal Ideation/Attempts No Current Suicidal Ideation/Att No Past Homicidal Ideation/Att: No Current Homicidal Ideation/Attempts No Degree of Intent: The patient denies any suicidal or homicidal ideations. His confirms that he has never been suicidal or homicidal. Danger To: N/A Gravely Disabled: N/A Risk Factors: age (under 24/over 65), male Lethality Ratin PTSD Checklist PTSD Done? pt unable to participate ED Management Sitter: No Restraints: No DSM5/PS Stressors/Medical Prob Diagnosis' (DSM 5, Stressors, Medical): T50.905A Other Adverse effects of medication. Medical: Lyphoma, Afib, hypertension, hyperlipidemia. Stressors: Chronis medical issues. Current GAF: 40 Comments: N/A Departure Disposition Psych Medical Clearance Date: 07/25/18 Medically Cleared at: 1700 Time Started: 1700 Time Ended: 1800 Psychiatrist Consulted: Stevo Aguilar MD Date Disposition Established: 07/25/18 Time Disposition Established: 1800 Plan for Disposition - Modality: D/C home to follow up with current PCP, Dr. Sanches, continue with Adult daycar Facility: [facility] Follow-up Appt Date: 07/30/18 Contact: N/A Telephone: N/A Rationale for Disposition: The patient presented to the ED, last evening after having some periods of confusion and standing outside in his underwear. The patients called 911 to help her with him last evening. She states that this unusual behavior happened after he took Trazodone. She states that he was prescribed a 7 day script from his PCP and he had only taken it for a few days. She reports that he has always been sensitive to medications. She states that his mental status is back to baseline. She does not find him to be a risk to himself or others and would like to take him home. She states that he already has an appointment set up with Dr. Sanches for MondayJuly 30 and he will return to adult daycare tomorrow. The case was discussed with Dr. Aguilar and he is in agreement with the plan to discharge home to follow up with Dr. Sanches. He recommended that the patient stop taking the Trazodone, until he see Dr. Sanches. Additional Instructions: N/A Referrals Verónica BERGMAN,Russ Sim (PCP/Family)
== END 2018-07-25 18:38 ==
LOC: ERH 23:19
PROVIDERS: Pediatrics
DX: R41.0 Disorientation, unspecified (principal); I48.91 Unspecified atrial fibrillation; E78.5 Hyperlipidemia, unspecified; I10 Essential (primary) hypertension; G47.30 Sleep apnea, unspecified; E11.9 Type 2 diabetes mellitus without complications; Z79.84 Long term (current) use of oral hypoglycemic drugs
CPT/HCPCS: 71045; 81001; 93005; 93010; 96360; 96361; G0463